=== PATIENT | female | born 1980 | race Caucasian/White ===

== ENCOUNTER → 2016-09-08 | Outpatient (CLI) | payer MEDICAID | LOC: BRMIMAGING 14:55 | PROVIDERS: ATTEND Registered Nurse | DX: E04.1 Nontoxic single thyroid nodule (principal) ==

== ENCOUNTER → 2017-06-09 | Outpatient (CLI) | payer MEDICAID | LOC: BRMIMAGING 11:03 | PROVIDERS: ATTEND Family Medicine | DX: R10.32 Left lower quadrant pain (principal); R10.31 Right lower quadrant pain; Z90.710 Acquired absence of both cervix and uterus | CPT/HCPCS: 76856-PO ==

== ENCOUNTER → 2017-09-29 | Outpatient (CLI) | payer MEDICAID | LOC: BRMIMAGING 13:08 | PROVIDERS: ATTEND Family Medicine | DX: E04.1 Nontoxic single thyroid nodule (principal); E06.3 Autoimmune thyroiditis ==